=== PATIENT | female | born 1975 | race African-American/Black ===

== ENCOUNTER 2021-01-02 13:13 | Inpatient (IN) | payer MEDICAID ==
[~2021-01-02] VITALS: Ht 162.6 cm; Wt 54.7 kg
[~2021-01-02 13:13] MED LIST: [UNRECOGNIZED DRUG - REMARK] PO
[2021-01-02 14:22] LABS: BASOPHILS % (AUTO) 1.1 % (0.0-2.0); EOSINOPHILS % (AUTO) 1.7 % (1.0-6.0); HEMATOCRIT 38.7 % (36-46); HEMOGLOBIN 13.1 g/dL (12.0-16.0); LYMPHOCYTES # (AUTO) 2.2 K/uL (1.0-4.8); LYMPHOCYTES % (AUTO) 45.7 % (22.0-44.0); MEAN CORPUSCULAR HEMOGLOBIN 29.6 pg (26.0-34.0); MEAN CORPUSCULAR HGB CONC 33.8 G/dL (31.0-37.0); MEAN CORPUSCULAR VOLUME 88 fL (80-100); MONOCYTES # (AUTO) 0.4 K/uL (0.1-1.0); MONOCYTES % (AUTO) 8.7 % (2.0-9.0); NEUTROPHILS % (AUTO) 42.8 % (40.0-70.0); PLATELET COUNT (AUTO) 407 K/uL (150-450); RED BLOOD CELL COUNT(AUTO) 4.41 MIL/uL (4.00-5.20); RED CELL DISTRIBUTION WIDTH 14.3 % (11.5-14.5)
[2021-01-02 14:33] LABS: ANION GAP 12 mmol/L (8-16); CALCIUM, TOTAL 8.7 mg/dL (8.8-10.5); CARBON DIOXIDE 29 mmol/L (22-29); CHLORIDE 104 mmol/L (98-107); CREATININE 0.69 mg/dL (0.60-1.30); GLOMERULAR FILTR. RATE CALC > 60 mL/min (>60); GLUCOSE,RANDOM 102 mg/dL (70-110); POTASSIUM 3.4 mmol/L (3.5-5.1); SODIUM SERUM 145 mmol/L (136-145); UREA NITROGEN, BLOOD 7 mg/dL (7-18)
[2021-01-02 14:41] LABS: SALICYLATE 2.4 mg/dL (2.8-20.0)
[2021-01-02 14:45] LABS: ALANINE AMINOTRANSFERASE 21 U/L (12-78); ALBUMIN 3.4 g/dL (3.4-5.0); ALKALINE PHOSPHATASE 117 U/L (46-116); ASPARTATE AMINOTRANSFERASE 14 U/L (15-37); BILIRUBIN,TOTAL 0.3 mg/dL (0.1-1.0); HCG,QUANTITATIVE < 1 mIU/mL (0-6); TOTAL PROTEIN, SERUM 7.4 g/dL (6.4-8.2)
[2021-01-02 14:46] LABS: ACETAMINOPHEN < 2 mcg/mL (10-30)
[2021-01-02 17:30] LABS: COVID AG,FIA SOURCE NASOPHARYNGEAL
[2021-01-02] MEDS ORDERED: ZOLPIDEM TARTRATE 10 MG TABLET PO PRN (17:45)
[2021-01-02] MEDS ORDERED: HALOPERIDOL 5 MG TABLET PO PRN (17:45)
[2021-01-03 02:45] VITALS: BP 138/89
[2021-01-03] MEDS ORDERED: MAGNESIUM HYDROXIDE SUSPENSION 30 ML UDCUP PO PRN (07:00)
[2021-01-03] MEDS ORDERED: DOCUSATE SODIUM 100 MG CAPSULE PO PRN (07:00)
[2021-01-03] MEDS ORDERED: CloNIDine HCL 0.1 MG TABLET PO PRN (07:00)
[2021-01-03] MEDS ORDERED: PETROLATUM,WHITE 28 GM JELLY TP PRN (07:00)
[2021-01-03] MEDS ORDERED: MAG HYDROX/AL HYDROX/SIMETH ES 30 ML SUSPENSION UDCUP PO PRN (07:00)
[2021-01-03] MEDS ORDERED: NICOTINE 14 MG/24 HOUR PATCH TD PRN (07:00)
[2021-01-03] MEDS ORDERED: ONDANSETRON HCL 4 MG TABLET PO PRN (07:00)
[2021-01-03] MEDS ORDERED: LOPERAMIDE HCL 2 MG CAPSULE PO PRN (07:00)
[2021-01-03] MEDS ORDERED: GuaiFENesin/D-METHORPHAN [SUGAR-FREE] 200-20MG/10 ML SYRUP UDCUP PO PRN (07:00)
[2021-01-03] MEDS ORDERED: ALBUTEROL SULFATE HFA 90 MCG/PUFF 8 GM INHALER IH PRN (07:00)
[2021-01-03] MEDS ORDERED: ACETAMINOPHEN 325 MG TABLET PO PRN (07:00)
[2021-01-03 08:33] VITALS: BP 126/72
[2021-01-03] MEDS: LORazepam 2 MG TABLET PO PRN (08:55)
[2021-01-03] MEDS ORDERED: POTASSIUM CHLORIDE 20 MEQ ER TABLET PO ONE (09:00)
[2021-01-03] MEDS: OLANZapine 5 MG RAPDIS TABLET PO SCH ×2 (12:05→16:36)
[2021-01-03 16:16] VITALS: BP 97/55
[2021-01-04 00:43] VITALS: BP 104/63
[2021-01-04 08:14] VITALS: BP 102/60
[2021-01-04] MEDS: OLANZapine 5 MG RAPDIS TABLET PO SCH ×2 (08:45→16:55)
[2021-01-04 16:09] VITALS: BP 113/65
[2021-01-04] MEDS: LORazepam 2 MG TABLET PO PRN (17:01)
[2021-01-05 00:36] VITALS: BP 110/78
[2021-01-05 08:23] VITALS: BP 106/63
[2021-01-05] MEDS: OLANZapine 5 MG RAPDIS TABLET PO SCH ×2 (08:23→16:50)
[2021-01-05] MEDS: LORazepam 2 MG TABLET PO PRN (08:41)
[2021-01-05 16:21] VITALS: BP 101/65
[2021-01-06 03:57] VITALS: BP 110/68
[2021-01-06 08:07] VITALS: BP 121/70
[2021-01-06] MEDS: OLANZapine 5 MG RAPDIS TABLET PO SCH ×2 (08:42→16:27)
[2021-01-06 16:10] VITALS: BP 119/70
[2021-01-07 05:10] VITALS: BP 118/72
[2021-01-07] MEDS: OLANZapine 5 MG RAPDIS TABLET PO SCH ×2 (08:45→16:48)
[2021-01-07 09:05] VITALS: BP 150/76
[2021-01-07 16:11] VITALS: BP 110/65
[2021-01-08 05:09] VITALS: BP 104/59
[2021-01-08 08:27] VITALS: BP 118/79
[2021-01-08] MEDS: OLANZapine 5 MG RAPDIS TABLET PO SCH ×2 (08:41→16:19)
[2021-01-08 18:03] VITALS: BP 107/69
[2021-01-09 00:53] VITALS: BP 102/72
[2021-01-09] MEDS: OLANZapine 5 MG RAPDIS TABLET PO SCH ×2 (08:16→17:02)
[2021-01-09 08:36] VITALS: BP 116/61
[2021-01-09 16:19] VITALS: BP 112/64
[2021-01-10 00:34] VITALS: BP 108/66
[2021-01-10] MEDS: OLANZapine 5 MG RAPDIS TABLET PO SCH ×2 (08:01→16:05)
[2021-01-10 08:40] VITALS: BP 100/63
[2021-01-10] MEDS ORDERED: PENICILLIN G BENZATHINE LA 2,400,000 UNITS/4 ML SYRINGE IM ONE (09:45)
[2021-01-10] MEDS: IBUPROFEN 400 MG TABLET PO PRN (13:15)
[2021-01-10 16:11] VITALS: BP 103/66
[2021-01-11 00:51] VITALS: BP 101/74
[2021-01-11 08:17] VITALS: BP 108/70
[2021-01-11] MEDS: OLANZapine 5 MG RAPDIS TABLET PO SCH ×2 (08:34→17:13)
[2021-01-11 16:32] VITALS: BP 99/65
[2021-01-12 06:20] VITALS: BP 116/71
[2021-01-12 08:06] LABS: HEPATITIS C AB (EIA) <0.1 s/co ratio (0.0-0.9); HIV 1-2 SCREEN 4TH GEN W/RFLX Non Reactive (Non Reactive)
[2021-01-12 08:27] VITALS: BP 106/61
[2021-01-12] MEDS: OLANZapine 5 MG RAPDIS TABLET PO SCH ×2 (08:50→16:50)
[2021-01-12] MEDS: IBUPROFEN 400 MG TABLET PO PRN (13:24)
[2021-01-12 16:18] VITALS: BP 98/61
[2021-01-13 01:55] VITALS: BP 102/66
[2021-01-13] MEDS: OLANZapine 5 MG RAPDIS TABLET PO SCH ×2 (08:13→16:13)
[2021-01-13 08:40] VITALS: BP 110/60
[2021-01-13 16:23] VITALS: BP 100/68
[2021-01-14 00:08] VITALS: BP 108/70
[2021-01-14] MEDS: OLANZapine 5 MG RAPDIS TABLET PO SCH ×2 (08:38→16:05)
[2021-01-14 08:46] VITALS: BP 110/57
[2021-01-14] MEDS: LORazepam 2 MG TABLET PO PRN (13:59)
[2021-01-14 16:15] VITALS: BP 108/65
[2021-01-15 00:22] VITALS: BP 101/68
[2021-01-15] MEDS: OLANZapine 5 MG RAPDIS TABLET PO SCH ×2 (08:14→17:04)
[2021-01-15 08:27] VITALS: BP 109/62
[2021-01-15 16:17] VITALS: BP 108/79
[2021-01-16 00:30] VITALS: BP 100/82
[2021-01-16 08:42] VITALS: BP 110/70
[2021-01-16] MEDS: OLANZapine 5 MG RAPDIS TABLET PO SCH ×2 (08:53→16:29)
[2021-01-16 16:26] VITALS: BP 135/80
[2021-01-17 00:22] VITALS: BP 122/78
[2021-01-17 07:23] LABS: COVID AG,FIA SOURCE NASAL SWAB
[2021-01-17] MEDS: OLANZapine 5 MG RAPDIS TABLET PO SCH ×2 (08:28→16:02)
[2021-01-17 08:29] VITALS: BP 102/71
[2021-01-17] MEDS ORDERED: PENICILLIN G BENZATHINE LA 2,400,000 UNITS/4 ML SYRINGE IM ONE (09:45)
[2021-01-17 16:12] VITALS: BP 107/65
[2021-01-18 07:11] VITALS: BP 110/72
[2021-01-18 07:22] VITALS: BP 113/59
[2021-01-18 08:18] VITALS: BP 116/74
[2021-01-18] MEDS: OLANZapine 5 MG RAPDIS TABLET PO SCH ×2 (08:24→16:38)
[2021-01-18 16:10] VITALS: BP 101/63
[2021-01-19 00:27] VITALS: BP 106/70
[2021-01-19 08:09] VITALS: BP 101/59
[2021-01-19] MEDS: OLANZapine 5 MG RAPDIS TABLET PO SCH (08:25)
[2021-01-19] MEDS ORDERED: OLAN5TAB94 PO (11:08)
[2021-01-24] MEDS ORDERED: PENICILLIN G BENZATHINE LA 2,400,000 UNITS/4 ML SYRINGE IM ONE (09:00)
== END 2021-01-19 14:00 | disposition home or self-care (01) | DRG 750 ==
LOC: EDUNIT# 13:13 → EMS 13:19 → B3A 20:47
PROVIDERS: ADMIT Psychiatry & Neurology Child & Adolescent Psychiatry; ATTEND Psychiatry & Neurology Child & Adolescent Psychiatry
DX: F20.0 Paranoid schizophrenia (principal); A53.0 Latent syphilis, unspecified as early or late; E83.51 Hypocalcemia; Z59.00 Homelessness unspecified; Q42.8 Congenital absence, atresia and stenosis of other parts of large intestine; F41.9 Anxiety disorder, unspecified; E87.6 Hypokalemia; Z20.822 Contact with and (suspected) exposure to COVID-19; F12.10 Cannabis abuse, uncomplicated; F15.10 Other stimulant abuse, uncomplicated; F17.210 Nicotine dependence, cigarettes, uncomplicated; Z78.9 Other specified health status; Z88.5 Allergy status to narcotic agent; Z71.6 Tobacco abuse counseling
CPT/HCPCS: 80053; 84132; 84702; 85025; 86592; 86593; 86706; 86707; 86780; 86803; 87340; 87350; 87389; 99285; G0480; G0481; J0561

== ENCOUNTER 2023-11-30 13:40 | Emergency (ER) | payer MEDICAID, OTHER ==
[~2023-11-30] VITALS: Ht 157.5 cm; Wt 50.0 kg
[~2023-11-30 13:40] MED LIST changes: +OLAN5TAB94 PO; -[UNRECOGNIZED DRUG - REMARK] PO
[2023-11-30 15:56] VITALS: TEMP 98.6
[2023-11-30 16:59] LABS: BASOPHILS % (AUTO) 0.7 % (0.0-2.0); EOSINOPHILS % (AUTO) 0.6 % (1.0-6.0); HEMOGLOBIN 13.1 g/dL (12.0-16.0); LYMPHOCYTES # (AUTO) 1.8 K/uL (1.0-4.8); LYMPHOCYTES % (AUTO) 29.5 % (22.0-44.0); MEAN CORPUSCULAR HEMOGLOBIN 29.5 pg (26.0-34.0); MEAN CORPUSCULAR HGB CONC 33.5 G/dL (31.0-37.0); MEAN CORPUSCULAR VOLUME 88 fL (80-100); MONOCYTES # (AUTO) 0.3 K/uL (0.1-1.0); NEUTROPHILS % (AUTO) 64.2 % (40.0-70.0); PLATELET COUNT (AUTO) 405 K/uL (150-450); RED BLOOD CELL COUNT(AUTO) 4.43 MIL/uL (4.00-5.20); RED CELL DISTRIBUTION WIDTH 13.7 % (11.5-14.5); WHITE BLOOD COUNT (AUTO) 6.2 K/uL (4.5-11.0)
[2023-11-30] MEDS: ACETAMINOPHEN 500 MG TABLET PO ONE (17:05)
[2023-11-30 17:15] LABS: ANION GAP 8 mmol/L (8-16); CALCIUM, TOTAL 8.2 mg/dL (8.8-10.5); CARBON DIOXIDE 27 mmol/L (22-29); CHLORIDE 103 mmol/L (98-107); CREATININE 0.86 mg/dL (0.60-1.30); GLOMERULAR FILTR. RATE CALC > 60 mL/min (>60); GLUCOSE,RANDOM 78 mg/dL (70-110); POTASSIUM 3.5 mmol/L (3.5-5.1); SODIUM SERUM 138 mmol/L (136-145); UREA NITROGEN, BLOOD 7 mg/dL (7-18)
[2023-11-30 18:38] VITALS: BP 139/76; PULSE 74; RESP 16; O2SAT 99
== END 2023-11-30 19:35 ==
LOC: EMS 13:40
DX: M87.9 Osteonecrosis, unspecified (principal); F20.9 Schizophrenia, unspecified; F17.210 Nicotine dependence, cigarettes, uncomplicated; F12.90 Cannabis use, unspecified, uncomplicated; F15.90 Other stimulant use, unspecified, uncomplicated; Z90.49 Acquired absence of other specified parts of digestive tract; Z88.5 Allergy status to narcotic agent; Z88.8 Allergy status to other drugs, medicaments and biological substances
CPT/HCPCS: 73502; 73503; 80048; 84703; 85025; 99284; 99406